=== PATIENT | female | born 1950 | race Caucasian/White ===

== ENCOUNTER → 2023-07-30 | Outpatient (CLI) | payer MEDICARE, SELFPAY ==
[2023-07-26 15:25] LABS: Creatinine, Serum 1.15 mg/dL (0.55-1.02); EST Glomerular Filtration Rate 49 mL/min (>60); Est Glom Filt Rate - Afr Amer 59 mL/min (>60)
--- NOTE | 2023-07-30 14:46 | ART_ITS ---
Reason For Study: PVD Procedure A bilateral lower extremity continuous wave Doppler with analog waveform analysis,segmental pressures,and ankle brachial indexes without exercise. Left Segmental Pressures Left brachial= 135mmHg. Left posterior tibial artery = 12mmHg. Left dorsalis pedis artery = 26mmHg. Left digit = 0 mmHg. The left posterior tibial artery waveforms are monophasic. The left dorsalis pedis waveforms are monophasic. Right Segmental Pressures Right brachial= 129mmHg. Right posterior tibial artery = 85mmHg. Right dorsalis pedis artery = 63mmHg. Right digit = 46 mmHg. The right posterior tibial artery waveforms are biphasic. The right dorsalis pedis waveforms are biphasic. Indices The right ankle brachial index by the posterior tibial artery is 0.63. The right ankle brachial index by the dorsalis pedis is 0.47. The right digital-brachial index is 0.34. The left ankle brachial index by the posterior tibial artery is 0.09. The left ankle brachial index by the dorsalis pedis is 0.19. The left digital-brachial index is 0.00. VL/Ankle Brachial Index Interpretation Summary Right moderate disease SHAMEKA 0.63 and left severe with SHAMEKA 0.19. Ordering Physician: Shaw William Referring Physician: MD Richard [place] Performed By: Haider Contreras RVT
--- NOTE | 2023-07-30 14:48 | CT_ITS ---
STUDY: CTA OF THE ABDOMINAL AORTA AND BILATERAL LOWER EXTREMITIES REASON FOR EXAM: Female, 73 years old. PVD. Pain in the left foot with numbness of the toes. RADIATION DOSAGE (If Supplied By Facility): CTDIvol = ( 6.13 ) mGy, DLP = ( 820.81 ) mGycm TECHNIQUE: Axial CT angiography multi-detector data acquisition was obtained from the to the following intravenous administration of IV 100mL Isovue-[id number]. Axial images and MIP images were reconstructed from the axial data set. Post-processing of the angiographic images was performed, with multiplanar reformation and 3D reconstruction. Individualized dose optimization techniques were used for this CT. TECHNICAL QUALITY: Good COMPARISON: None. Descriptors of Narrowing: None (0%) Mild (< 50%) Moderate (50-70%) Severe (70-90%) Subtotal/Total Occlusion (90-100%) Non-Evaluable (technically non-diagnostic FINDINGS: Abdominal aorta: Atherosclerotic plaque formation of the abdominal aorta with the mural thrombus. Celiac and superior mesenteric arteries: No demonstrated narrowing. Inferior mesenteric artery: No demonstrated narrowing. Right renal artery(arteries): No demonstrated narrowing. Left renal artery(arteries): No demonstrated narrowing. Right common iliac artery: Stents are seen in the common iliac artery. Right external iliac artery: Vascular stent is seen. Right internal iliac artery: No demonstrated narrowing. Left common iliac artery: Vascular stent Left external iliac artery: Vascular stent. Left internal iliac artery: No demonstrated narrowing. RIGHT LOWER EXTREMITY Right common femoral artery: Tight stenosis of the right common femoral artery just distal to the stent placement. Right profundus femoris: No demonstrated narrowing. 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 Right popliteal artery: No demonstrated narrowing. Right tibioperoneal trunk: No demonstrated narrowing. Right anterior tibial artery: No demonstrated narrowing. Right posterior tibial artery: No demonstrated narrowing. Right peroneal artery: No demonstrated narrowing. LEFT LOWER EXTREMITY Left common femoral artery: No demonstrated narrowing. Left profundus femoris: No demonstrated narrowing. Left superficial femoral: Superficial femoral artery is patent Left popliteal artery: No demonstrated narrowing. Left tibioperoneal trunk: No demonstrated narrowing. Left anterior tibial artery: No demonstrated narrowing. Left posterior tibial artery: Not visualized. Left peroneal artery: No demonstrated narrowing. 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 Stents are seen in both common iliac arteries. Electronically Signed: Matt Witt MD at 10:31 EST ,
== END | disposition home or self-care (01) ==
LOC: CT 14:42
PROVIDERS: PCP Family Medicine; Referring Provider Surgery Vascular Surgery; Visit Provider Surgery Vascular Surgery
DX: I73.9 Peripheral vascular disease, unspecified (principal); I74.3 Embolism and thrombosis of arteries of the lower extremities; S91.302A Unspecified open wound, left foot, initial encounter; X58.XXXA Exposure to other specified factors, initial encounter; L03.116 Cellulitis of left lower limb
CPT/HCPCS: 36415; 75635; 82565; 93922; Q9967